=== PATIENT | female | born 1995 | race Caucasian/White ===

== ENCOUNTER 2023-01-22 23:07 | Emergency (ER) | payer SELFPAY ==
[~2023-01-22] VITALS: Ht 160 cm; Wt 55.0 kg
[2023-01-22 23:18] VITALS: BP 118/78
== END 2023-01-23 01:43 | disposition home or self-care (01) ==
LOC: ER 23:07
DX: F10.129 Alcohol abuse with intoxication, unspecified (principal); Y90.0 Blood alcohol level of less than 20 mg/100 ml
CPT/HCPCS: 99283